=== PATIENT | female | born 1980 | race Caucasian/White ===

== ENCOUNTER 2017-04-14 05:59 | Emergency (ER) | payer SELFPAY ==
[2017-04-14] MEDS ORDERED: DEXAMETHASONE SOD PHOS 4 MG/ML VIAL IM ONE (06:45)
[2017-04-14] MEDS ORDERED: Lidocaine 1% 5ml(IM or SUTURE)(PAIN CLINIC) IJ ONE (06:45)
[2017-04-14] MEDS ORDERED: cefTRIAXone SODIUM 1 GM VIAL IM ONE (06:45)
[2017-04-14] MEDS ORDERED: methylPREDNISolone ACETATE 80 MG/ML VIAL IM ONE (06:46)
--- NOTE | 2017-04-14 06:55 | ED Physician Documentation ---
Upper Respiratory Symptoms - HISTORIAN Historian: patient - HPI Stated Complaint: ache all over, chills, sore throat Chief Complaint: Cough/ Upper Respiratory Additional Information: sick for a few days, nonprod. cough, muscle aches Onset: days ago (3) Duration: sudden-Onset Context: denies: recent foreign travel, insect bite(s), tick(s), recent chemotherapy, multiple patients, same sx Severity: moderate Associated Symptoms: sinus drainage, sore throat, hoarseness, headache, other ( nonprod. cough) Worsened by Deep Breath: Yes Further Comments: no - ROS CONST/EYES: denies: weakness, eye redness, eye itching CVS/RESP: other (cough). denies: chest pain, shortness of breath, palpitations LYMPH: denies: leg swelling, rash, swollen glands, ankle swelling GI/: none NEURO/PSYCH: denies: fainting, dizziness, confusion, anxiety, depression MS/SKIN: muscle aches. denies: joint pain, rash - PAST HX Lung Disease: none PE Risk Factors: none Surgeries/Procedures: Immunizations: referred to PCP Allergies/Adverse Reactions: Allergies Allergy/AdvReac Type Severity Reaction Status Date / Time No Known Allergies Allergy Verified 04/14/17 06:22 Home Medications: Ambulatory Orders Medication Instructions Recorded NK [NK] 04/14/17 - SOCIAL HX Smoking History: cigarettes Alcohol Use: occasionally Drug Use: none - FAMILY HX Family History: no significant history - VITAL SIGNS Vital Signs: Vital Signs Temp Pulse Resp BP Pulse Ox 98.3 F 107 H 16 128/92 95 04/14/17 05:59 04/14/17 05:59 04/14/17 05:59 04/14/17 05:59 04/14/17 05:59 - REVIEWED ASSESSMENTS Nursing Assessment Reviewed: Yes Vitals Reviewed: Yes Progress - Results/Orders Results/Orders: strep, flu a and b ordered - Progress Progress: pt. given 1 gram of Rocephin, 80 mg Depo Medrol and 8 mg Decadron im in er Critical Care Note - Critical Care Note Total Time (mins): 0 ED Results Lab/Radiology - Lab Results Lab Results: strep, flu a and flu b neg - Radiology Radiology Impressions: none ordered - Orders Orders: ED Orders Category Date Time Status INFLUENZA A&B Routine Lab 04/14/17 Uncollected Strep [GRP A STREP SCREEN] Routine Lab 04/14/17 Ordered Dexamethasone Sod Phosphate [Decadron] Med 04/14/17 06:45 Once 8 mg IM NOW ONE Lidocaine 1% 5ml(IM or SUTURE) [Xylocaine] Med 04/14/17 06:45 Once 50 mg IJ NOW ONE cefTRIAXone SODIUM [Rocephin] Med 04/14/17 06:45 Once 1 gm IM NOW ONE methylPREDNISolone ACETATE [Depo-Medrol] Med 04/14/17 06:46 Once 80 mg IM NOW ONE Upper Respiratory Symptoms - EXAM General Appearance: alert, moderate distress EENT: eyes nml inspection, nml ENT inspection, lids & conjunct. nml, PERRL, TM dullness (R), TM dullness (L), rhinorrhea, mucosal edema, pharynx nml. No: pain over sinuses, tonsillar exudate, tonsillar swelling Neck: normal inspection, thyroid normal, supple Respiratory: no resp. distress, no pain on inspiration, speaks full sentences, wheezes. No: retractions, splinting, accessory muscle use, decreased air movement, rales, rhonchi, stridor Abdomen: non-tender, no organomegaly, nml bowel sounds, no distention CVS: reg rate & rhythm, heart sounds normal, equal pulses, no murmur, no gallop , PMI nml, no JVD Skin: color nml, no rash, warm,dry Extremities: non-tender, normal range of motion, no evidence of injury, no edema Neuro/Psych: oriented x3, neuro intact, mood/affect nml Discharge Clincal Impression: Upper respiratory infection Qualifiers: URI type: unspecified URI Qualified Code(s): J06.9 - Acute upper respiratory infection, unspecified Referrals: Primary Doctor,No [Primary Care Provider] - 2 Days Comments: Discharged in stable condition with scripts for Keflex 500 mg 2 capsules twice daily #28, Prednisone 50 mg p.o. tomorrow, 40 mg the next day, 30 mg the next day, 20 mg the next day, 10 mg the next day then off. Condition: Stable Disposition: 01 HOME, SELF-CARE Decision to Admit: NO Decision Time: 06:53
[2017-04-14 07:14] VITALS: BP 120/68
== END 2017-04-14 07:12 | disposition home or self-care (01) ==
LOC: ED 05:59
DX: J06.9 Acute upper respiratory infection, unspecified (principal)
CPT/HCPCS: 87070; 87400; 87880; J0696; J1040; J1100; 96372; 96374; 99283

== ENCOUNTER 2018-09-06 19:30 | Emergency (ER) | payer SELFPAY ==
[2018-09-06 19:45] VITALS: BP 149/93
[2018-09-06] MEDS: AMOXICILLIN/POT 875/125 1 EACH PO ONE (20:35)
--- NOTE | 2018-09-06 20:35 | ED Physician Documentation ---
Animal Bite - HISTORIAN Historian: patient - HPI Stated Complaint: Finger Laceration Chief Complaint: Animal Bite Onset: today Where: home Animal: dog Appearance of Animal: appeared well Animal's Immunization Status: UTD Observation/ Capture of Animal: animal is known Context of Attack: animals fighting Severity of Injury: bitten Location of Injury: L upper extremity (right 5th digit) Associated Symptoms: none Further Comments: yes (38 year old female patient presents with laceration to 5th digit; attempted to separate her 2 Tomorrow Terriers after their playing turned aggressive. Both dogs have been vaccinated and live in home within city limits with patient.) - ROS CONST: none EYES/ENT: none CVS/RESP: none NEURO: none GI/: none MS/SKIN/LYMPH: none - PAST HX Past History: none Allergies/Adverse Reactions: Allergies Allergy/AdvReac Type Severity Reaction Status Date / Time No Known Allergies Allergy Verified 09/06/18 19:39 Home Medications: Ambulatory Orders Medication Instructions Recorded Amoxicillin/Potassium Clav 1 each PO BID #20 tablet 09/06/18 [Augmentin 875-125 Tablet] - SOCIAL HX Smoking History: non-smoker - FAMILY HX Family History: denies: none - VITAL SIGNS Vital Signs: Vital Signs Temp Pulse Resp BP Pulse Ox 104 H 17 149/93 96 09/06/18 19:31 09/06/18 19:31 09/06/18 19:31 09/06/18 19:31 - REVIEWED ASSESSMENTS Nursing Assessment Reviewed: Yes Vitals Reviewed: Yes Progress - Progress Progress: Wound cleaned with chlorhexidine and water; steri strips applied. First dose of augmentin given in ER. ED Results Lab/Radiology - Orders Orders: ED Orders Category Date Time Status Amoxicillin/Potassium Clav [AUGMENTIN 875MG/125 mg Med 09/06/18 20:32 Discontinued Tablet] 1 each PO NOW ONE Animal Bite Physical Exam - Physical Exam General Appearance: mild distress Skin: other (.5 cm "T" shaped laceration to cohen aspect of distal 5th right digit; small abrasions to dorsal aspect x 2) Neuro/Vascular/Tendon: no vascular compromise, oriented x3, sensation nml, CN's nml as tested, ROM nml HEENT: MARILIA Resp/CVS: chest non-tender, no resp. distress, reg. rate & rhythm Abdomen: uninjured,nml inspection, non-tender Back: uninjured, nml inspection Extremities: no infection Discharge Clincal Impression: Dog bite of finger Qualifiers: Encounter type: initial encounter Qualified Code(s): S61.259A - Open bite of unspecified finger without damage to nail, initial encounter; W54.0XXA - Bitten by dog, initial encounter Prescriptions: Amoxicillin/Potassium Clav [Augmentin 875-125 Tablet] 1 each PO BID #20 tablet Referrals: Primary Doctor,No [Primary Care Provider] - 2 Days Condition: Stable Disposition: 01 HOME, SELF-CARE Decision to Admit: NO Decision Time: 20:34
== END 2018-09-06 21:18 | disposition home or self-care (01) ==
LOC: ED 19:30
DX: S61.216A Laceration without foreign body of right little finger without damage to nail, initial encounter (principal); W54.0XXA Bitten by dog, initial encounter; Y93.89 Activity, other specified; Y99.8 Other external cause status
CPT/HCPCS: 99284